=== PATIENT | female | born 1960 | race Caucasian/White ===

== ENCOUNTER → 2020-03-09 | Emergency (ER) | payer MEDICAID ==
[~2020-03-09] VITALS: Ht 154.9 cm; Wt 86.2 kg
[~2020-03-09] MED LIST: ACETAMINOPHEN 325 MG TAB PO ONE; methylPREDNISolone SOD SUCC 125 MG/2 ML VL IV ONE
[2020-03-09 21:04] VITALS: BP 128/70
== END | disposition home or self-care (01) ==
LOC: ER 20:57
DX: S10.96XA Insect bite of unspecified part of neck, initial encounter (principal); I10 Essential (primary) hypertension; E11.9 Type 2 diabetes mellitus without complications; W57.XXXA Bitten or stung by nonvenomous insect and other nonvenomous arthropods, initial encounter; Y93.89 Activity, other specified; Y92.89 Other specified places as the place of occurrence of the external cause; Y99.8 Other external cause status
CPT/HCPCS: 70490; 99284; J2930